=== PATIENT | male | born 2000 | race Caucasian/White ===

== ENCOUNTER 2018-04-25 19:43 | Emergency (ER) | payer SELFPAY ==
[~2018-04-25] VITALS: Ht 180.3 cm; Wt 56.7 kg
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
[2018-04-25 20:40] VITALS: BP 117/82
== END 2018-04-25 20:40 | disposition home or self-care (01) ==
LOC: EDUNIT# 19:43 → ER FS 19:45
DX: S61.011A Laceration without foreign body of right thumb without damage to nail, initial encounter (principal); W26.0XXA Contact with knife, initial encounter
CPT/HCPCS: 99282

== ENCOUNTER → 2018-08-29 | Outpatient (CLI) | payer MEDICAID ==
--- NOTE | 2018-08-29 11:15 | Diagnostic Imaging Report ---
CLINICAL INDICATION: Patient with cough and bloody sputum and tobacco abuse. EXAM: Chest x-ray PA and lateral views. COMPARISONS: None. FINDINGS: Lungs/pleura: Lungs are clear. There is no pneumothorax. There is no pleural effusion. Mediastinum: Unremarkable. Pulmonary vasculature: Unremarkable. Heart: Unremarkable. Bones/extrathoracic soft tissue: Unremarkable. IMPRESSION: There is no radiographic evidence of acute cardiopulmonary process. Dictated by: Dictated on workstation # [id number]
== END ==
LOC: RAD FS 11:05
PROVIDERS: ATTEND Nurse Practitioner Family
DX: R04.2 Hemoptysis (principal); Z72.0 Tobacco use
CPT/HCPCS: 71046

== ENCOUNTER 2019-09-06 23:17 | Emergency (ER) | payer MEDICAID ==
[~2019-09-06] VITALS: Ht 180.3 cm; Wt 55.0 kg
--- OUTSIDE RECORDS SUMMARY | 2019-09-06 23:24 | XMS REPORT | Continuity of Care Document ---
Author Organization Unknown Address Unknown Phone Unavailable Allergies There is no data. Medications There is no data. Problems Date Dx Coded Attending Type Code Diagnosis Diagnosed By 04/25/2018 BEATRICE CUNNINGHAM MD Ot S61.011A LACERATION W/O FB OF RIGHT THUMB W/O DAM 04/25/2018 BEATRICE CUNNINGHAM MD Ot W26.0XXA CONTACT WITH KNIFE, INITIAL ENCOUNTER 04/30/2018 BEATRICE CUNNINGHAM MD Ot S61.011A LACERATION W/O FB OF RIGHT THUMB W/O DAM 04/30/2018 BEATRICE CUNNINGHAM MD Ot W26.0XXA CONTACT WITH KNIFE, INITIAL ENCOUNTER 08/30/2018 BHAVESH VILLAR APRN Ot R04.2 HEMOPTYSIS 08/30/2018 BHAVESH VILLAR SALES REPRESENTATIVE WIRE ROPE Ot Z72.0 TOBACCO USE 09/18/2018 BHAVESH VILLAR APRN Ot R04.2 HEMOPTYSIS 09/18/2018 BHAVESH VILLAR APRN Ot Z72.0 TOBACCO USE Procedures There is no data. Results There is no data. Encounters ACCT No. Visit Date/Time Discharge Status Pt. Type Provider Facility Loc./Unit Complaint [id number] 08/29/2018 11:05:00 019 23:59:59 CLS Outpatient BHAVESH VILLAR APRN [facility] RAD FS Z72.0 R05 R04.2 [id number] 04/25/2018 19:45:00 019 20:40:00 DIS Emergency BEATRICE CUNNINGHAM MD Via [facility] ER FS RT THUMB LAC
[2019-09-07 00:01] VITALS: BP 134/69
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
--- NOTE | 2019-09-07 07:36 | Diagnostic Imaging Report ---
EXAMINATION: Right foot radiographs, 3 views. COMPARISON: None. HISTORY: 19-year-old male, fall. Right foot pain. FINDINGS: There is normal variant congenital fusion of the fifth digit middle and distal phalanges. There is no identified acute fracture. There is no radiopaque foreign body. The joint spaces are well preserved. IMPRESSION: Unremarkable radiographs of the right foot. Dictated by: Dictated on workstation # [id number]
== END 2019-09-07 00:06 | disposition home or self-care (01) ==
LOC: EDUNIT# 23:17 → ER FS 23:20
DX: S93.601A Unspecified sprain of right foot, initial encounter (principal); W01.0XXA Fall on same level from slipping, tripping and stumbling without subsequent striking against object, initial encounter; Y93.02 Activity, running
CPT/HCPCS: 73630

== ENCOUNTER 2019-09-12 05:37 | Emergency (ER) | payer MEDICAID, OTHER ==
[~2019-09-12] VITALS: Ht 180.3 cm; Wt 56.8 kg
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
[2019-09-12 05:48] VITALS: BP 123/78
--- NOTE | 2019-09-12 05:54 | ED General ---
General Stated Complaint: MEDICAL CLEARANCE Source of Information: Patient, Police History of Present Illness Date Seen by Provider: Sep 12, 2019 Time Seen by Provider: 05:48 Initial Comments 19-year-old male brought in by [facility]'s department for exam for fit for confinement. Patient has abrasion from a fall on his right elbow and forearm and left hand. He also has some abrasions on his left knee. He denies any other medical problems. He does not have any other complaints such as fevers chills nausea vomiting etc. Allergies and Home Medications Allergies Coded Allergies: No Known Drug Allergies (Unverified , 09/06/19) Patient Home Medication List Home Medication List Reviewed: Yes Review of Systems Review of Systems Constitutional: No chills, No fever EENTM: no symptoms reported Respiratory: no symptoms reported; No cough, No short of breath Cardiovascular: No chest pain Gastrointestinal: No abdominal pain, No nausea, No vomiting Genitourinary: no symptoms reported; No dysuria Musculoskeletal: no symptoms reported Skin: see HPI Psychiatric/Neurological: No Symptoms Reported Hematologic/Lymphatic: No Symptoms Reported Immunological/Allergic: no symptoms reported Past Crcnvqn-Sjevjo-Bcuhwp Hx Past Med/Social Hx: Reviewed Nursing Past Med/Soc Hx Patient Social History Type Used: Cigarettes 2nd Hand Smoke Exposure: Yes Recent Foreign Travel: No Contact w/Someone Who Travel: No Recent Hopitalizations: No Seasonal Allergies Seasonal Allergies: No Past Medical History Surgeries: No Respiratory: No Cardiac: No Neurological: No Genitourinary: No Gastrointestinal: No Musculoskeletal: No Endocrine: No HEENT: No Cancer: No Psychosocial: No Integumentary: No Blood Disorders: No Physical Exam Vital Signs Capillary Refill : Height, Weight, BMI Height: 5'11.00" Weight: 125lbs. oz. 56.355390gm; 16.00 BMI Method:Stated General Appearance: No Apparent Distress, WD/WN Eyes: Bilateral Eye Normal Inspection HEENT: PERRL/EOMI, Pharynx Normal Neck: Full Range of Motion, Non Tender Respiratory: Lungs Clear, Normal Breath Sounds Cardiovascular: Regular Rate, Rhythm, No Edema Gastrointestinal: Non Tender, Soft Back: Normal Inspection, No Vertebral Tenderness Extremity: Normal Capillary Refill, Normal Range of Motion Neurologic/Psychiatric: Alert, Oriented x3, Normal Mood/Affect, home health outreach coordinator II-XII Norm as Tested Skin: Other (superficial abrasions on right elbow, forearm, left hand. Patient did not allow me to look at abrasions on the left knee) Lymphatic: No Adenopathy Progress/Results/Core Measures Suspected Sepsis SIRS Temperature: Pulse: Respiratory Rate: Blood Pressure / Mean: Results/Orders Vital Signs/I&O Capillary Refill : Departure Impression Primary Impression: Multiple abrasions Disposition: HOME, SELF-CARE Condition: Stable Departure-Patient Inst. Referrals: SELF,LILA RIVER (PCP/Family) Primary Care Physician Patient Instructions: Skin Abrasions Add. Discharge Instructions: Clean abrasions with warm soapy water Patient is fit for confinement CHERELLE MARKHAM DO Sep 12, 2019 05:54
== END 2019-09-12 06:00 | disposition home or self-care (01) ==
LOC: EDUNIT# 05:37 → ER FS 05:41
DX: S50.311A Abrasion of right elbow, initial encounter (principal); S50.811A Abrasion of right forearm, initial encounter; S60.512A Abrasion of left hand, initial encounter; S80.212A Abrasion, left knee, initial encounter; Z77.22 Contact with and (suspected) exposure to environmental tobacco smoke (acute) (chronic); W19.XXXA Unspecified fall, initial encounter

== ENCOUNTER 2021-05-04 02:41 | Emergency (ER) | payer MEDICAID, OTHER ==
[~2021-05-04] VITALS: Ht 180 cm; Wt 56.6 kg
[2021-05-04] MEDS ORDERED: IBUPROFEN 600 MG (MOTRIN) TAB PO STA (03:05)
[2021-05-04] MEDS ORDERED: HYDROcodone/APAP 5 MG/325 MG (LORTAB) TAB PO STA (03:05)
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
[2021-05-04 04:05] VITALS: BP 117/71
--- NOTE | 2021-05-04 06:24 | Diagnostic Imaging Report ---
INDICATION: Pain, right 4th and 5th fingers. Swelling, left 5th MCP joint TECHNIQUE: Three views of the bilateral hands. CORRELATION STUDY: None FINDINGS: Right hand: 2 pins transfix a predominantly transversely oriented comminuted 5th proximal phalanx fracture. There is slight radial and volar displacement of the main distal fracture fragment and outward displacement of the additional larger comminuted fragments. Predominantly transversely oriented but slightly comminuted fracture involving the 4th proximal phalanx as distal aspect. Minimal radial subluxation present. Remaining osseous structures right hand otherwise intact. Soft tissue edema present. Left hand: Transversely oriented fractures at the neck of the 4th and 5th metacarpals. Slight volar displacement and angulation present. The articular surface appears to be maintained. Remaining osseous structures otherwise intact. IMPRESSION: 1. Right hand with mildly displaced fractures involving the 4th and 5th proximal phalanges. External fixation pins are noted about the 5th proximal phalanx fracture. 2. Left hand with mildly displaced angulated distal 4th and 5th metacarpal fractures. Dictated by: Dictated on workstation # [id number]
== END 2021-05-04 04:05 | disposition home or self-care (01) ==
LOC: EDUNIT# 02:41 → ER FS 02:44
DX: S62.337A Displaced fracture of neck of fifth metacarpal bone, left hand, initial encounter for closed fracture (principal); S62.365A Nondisplaced fracture of neck of fourth metacarpal bone, left hand, initial encounter for closed fracture; S62.614A Displaced fracture of proximal phalanx of right ring finger, initial encounter for closed fracture; Z72.0 Tobacco use; W18.30XA Fall on same level, unspecified, initial encounter
CPT/HCPCS: 29125; 73130; 99284; A4565

== ENCOUNTER 2021-10-03 18:27 | Emergency (ER) | payer MEDICAID ==
[~2021-10-03] VITALS: Ht 180 cm; Wt 54.4 kg
--- NOTE | 2021-10-03 18:36 | ED General ---
General Chief Complaint: COVID19 Suspect/Confirmed Stated Complaint: FEVER History of Present Illness Date Seen by Provider: Oct 03, 2021 Time Seen by Provider: 18:36 Initial Comments 21-year-old male with no significant PMH is here with complaints of subjective fever, myalgia, nausea, abdominal cramping, and diarrhea for the past 2 days. Patient is able to eat and keep food down. Patient had Ramen noodles soup for lunch. Patient's son was also sick a few days ago but tested negative for COVID and all other swab tests. Denies chest pain, palpitations, vomiting, headache, neck stiffness or pain. Pt wants to make sure he does not have COVID and he wants a work note. Allergies and Home Medications Allergies Coded Allergies: Sulfa (Sulfonamide Antibiotics) (Verified Allergy, Unknown, 05/04/21) Patient Home Medication List Home Medication List Reviewed: Yes Review of Systems Review of Systems Constitutional: fever, malaise EENTM: no symptoms reported Respiratory: no symptoms reported Cardiovascular: no symptoms reported Gastrointestinal: nausea, other (abdominal cramping) Genitourinary: no symptoms reported Musculoskeletal: no symptoms reported Skin: no symptoms reported Psychiatric/Neurological: No Symptoms Reported Hematologic/Lymphatic: No Symptoms Reported Immunological/Allergic: no symptoms reported Past Prkkatc-Erinbn-Pcjapq Hx Immunizations Up To Date First/Initial COVID19 Vaccinat: denies Seasonal Allergies Seasonal Allergies: No Past Medical History Surgery/Hospitalization HX: Right Hand fracture with surgical repair with pins 04/19/21 Surgeries: No Respiratory: No Cardiac: No Neurological: No Genitourinary: No Gastrointestinal: No Musculoskeletal: No Endocrine: No HEENT: No Cancer: No Psychosocial: No Integumentary: No Blood Disorders: No Physical Exam Vital Signs Vital Signs - First Documented 10/03/21 18:31 Temp 36.5 Pulse 82 Resp 14 B/P (MAP) 113/60 (77) Pulse Ox 99 O2 Delivery Room Air Capillary Refill : Height, Weight, BMI Height: 5'11.00" Weight: 125lbs. oz. 56.812842lk; 17.00 BMI Method:Stated General Appearance: No Apparent Distress, WD/WN HEENT: PERRL/EOMI, Normal ENT Inspection, Pharynx Normal (Very mild erythema only) Neck: Full Range of Motion, Normal Inspection, Non Tender, Supple Respiratory: Chest Non Tender, Lungs Clear, Normal Breath Sounds Cardiovascular: Regular Rate, Rhythm Gastrointestinal: Normal Bowel Sounds, No Organomegaly, Non Tender, Soft Back: No CVA Tenderness Extremity: Normal Range of Motion Neurologic/Psychiatric: Alert, Oriented x3, No Motor/Sensory Deficits, Normal Mood/Affect Skin: Normal Color Lymphatic: No Adenopathy Progress/Results/Core Measures Suspected Sepsis SIRS Temperature: Pulse: Respiratory Rate: Blood Pressure / Mean: Results/Orders Lab Results Laboratory Tests Test 10/03/21 18:38 Range/Units Influenza Type A (RT-PCR) Not Detected Not Detecte Influenza Type B (RT-PCR) Not Detected Not Detecte SARS-CoV-2 RNA (RT-PCR) Not Detected Not Detecte My Orders Orders - BECCA PANDYA MD Covid 19 Inhouse Test (10/03/21 18:37) Influenza A And B By Pcr (10/03/21 18:37) Ondansetron Oral Dissolve Tab (Zofran (10/03/21 19:21) Famotidine Tablet (Pepcid Tablet) (10/03/21 19:21) Vital Signs/I&O 10/03/21 18:31 Temp 36.5 Pulse 82 Resp 14 B/P (MAP) 113/60 (77) Pulse Ox 99 O2 Delivery Room Air Capillary Refill : Progress Note : Progress Note 1. VIRAL GASTROENTERITIS: - COVID test negative/ Rapid flu test negative - Zofran and Pepcid oral given in ER - Prescription for Pepcid and Zofran given - Follow up with PCP in the next 3 to7 days - Advised adequate hydration - Work note given -The patient was seen in the ED, and treated appropriately to presentation at a specific point in time. Patient is informed that there is a possibility that disease and illness can evolve and change in acuity rapidly or slowly after patient is discharged from the ER. Precautionary advice given to the patient for immediate return to ER if symptoms worsen or do not resolve, and to seek emergency care sooner rather than later. Pt also advised on the importance of PCP follow up and compliance with management and follow up plan with PCP and/or specialist, as this is part of the management plan. Pt verbally expressed understanding. Departure Impression Primary Impression: Viral gastroenteritis Disposition: 01 HOME, SELF-CARE Condition: Stable Departure-Patient Inst. Referrals: SELF,LILA RIEVR (PCP/Family) Primary Care Physician Patient Instructions: Viral Gastroenteritis, Diarrhea, Adult ED Add. Discharge Instructions: - Prescription for Pepcid and Zofran given - Follow up with PCP in the next 3 to7 days - Advised adequate hydration - Work note given All discharge instructions reviewed with patient and/or family. Voiced understanding. Scripts Nizatidine (Nizatidine) 150 Mg Capsule 150 MG PO DAILY for 7 Days, #7 CAP Prov: BECCA PANDYA MD 10/03/21 Ondansetron (Ondansetron Odt) 4 Mg Tab.rapdis 4 MG PO TID for nausea for 4 Days, #15 TAB Prov: BECCA PANDYA MD 10/03/21 BECCA PANDYA MD Oct 03, 2021 18:36
[2021-10-03] MEDS ORDERED: FAMOTIDINE 20 MG (PEPCID) TABLET PO STA (19:21)
[2021-10-03] MEDS ORDERED: ONDANSETRON 4 MG (ZOFRAN) ORAL DISSOLVE TAB SL STA (19:21)
[2021-10-03] MEDS ORDERED: ONDA4TAB11 PO (19:34)
[2021-10-03] MEDS ORDERED: [UNRECOGNIZED DRUG - CODE] PO (19:34)
[2021-10-03 19:36] VITALS: BP 119/68
== END 2021-10-03 19:37 | disposition home or self-care (01) ==
LOC: EDUNIT# 18:27 → ER FS 18:29
DX: A08.4 Viral intestinal infection, unspecified (principal); Z28.310 Unvaccinated for COVID-19; Z20.822 Contact with and (suspected) exposure to COVID-19
CPT/HCPCS: 87636; 99283

== ENCOUNTER 2022-04-15 01:13 | Emergency (ER) | payer MEDICAID ==
[~2022-04-15 01:13] MED LIST: ONDA4TAB11 PO; [UNRECOGNIZED DRUG - CODE] PO
[2022-04-15] MEDS ORDERED: AUGMENTIN 875 MG TAB (AMOXICILLIN/CLAVULANATE) PO STA (01:35)
[2022-04-15] MEDS ORDERED: IBUPROFEN 800 MG (MOTRIN) TAB PO STA (01:35)
[2022-04-15] MEDS ORDERED: IBUP-1780 PO (01:40)
[2022-04-15] MEDS ORDERED: TRM50T PO (01:40)
[2022-04-15] MEDS ORDERED: AMOX1TAB12 PO (01:40)
[2022-04-15 01:42] VITALS: BP 144/97
--- NOTE | 2022-04-15 01:42 | ED EENT ---
History of Present Illness General Chief Complaint: Dental Problems/Pain Stated Complaint: DEMTAL PAIN Nursing Triage Note: Pt complaining of right upper and lower dental pain that started about a month ago Source: patient History of Present Illness Date Seen by Provider: Apr 15, 2022 Time Seen by Provider: 01:18 Initial Comments 22-year-old male presenting with complaints of dental pain on the right side that has been ongoing for over a month. He has had recurring issues with his teeth but ran out of any Tylenol or ibuprofen at home. He states he previously tried to get in with a dentist but did not have dental insurance at that time however now he does. He felt like he was getting some yellow drainage from the teeth and was concerned for infection. He denies fever, chills, nausea, vomiting, pain with opening his mouth. There is dental pain on the right side both upper and lower teeth. He has widespread dental decay with multiple broken and decayed teeth. Timing/Duration: gradual (for over a month, worse now since he ran out of OTC pain medicine) Severity: severe Location: dental Prearrival Treatment: no prearrival treatment Modifying Factors: Worse With Other (eating and drinking makes it worse) Associated Symptoms: No change in hearing, No cough, No drooling, No ear drainage, No facial pain/swelling, No fever, No malaise, No nasal congestion/drainage, No poor fluid intake, No poor solids intake; tooth pain Allergies and Home Medications Allergies Coded Allergies: Sulfa (Sulfonamide Antibiotics) (Verified Allergy, Unknown, 05/04/21) Patient Home Medication List Home Medication List Reviewed: Yes Amoxicillin/Potassium Clav (Amox Tr-K Clv 875-125 mg Tab) 875 Mg-125 Mg Tablet, 1 EACH PO BID Prescribed by: GERMAN ALEMAN on 04/15/22139 Ibuprofen (Ibuprofen) 800 Mg Tablet, 800 MG PO Q8H PRN for PAIN Prescribed by: GERMAN ALEMAN on 04/15/22139 Nizatidine (Nizatidine) 150 Mg Capsule, 150 MG PO DAILY Prescribed by: BECCA PANDYA MD on 10/03/211933 Ondansetron (Ondansetron Odt) 4 Mg Tab.rapdis, 4 MG PO TID Prescribed by: BECCA PANDYA MD on 10/03/211933 Tramadol HCl (Tramadol HCl) 50 Mg Tablet, 50 MG PO Q6H PRN for PAIN-SEVERE (8- 10) Prescribed by: GERMAN ALEMAN on 04/15/22 0140 Review of Systems Review of Systems Constitutional: No chills, No fever Eyes: No Symptoms Reported Ears: No Symptoms Reported Mouth: see HPI Throat: no symptoms reported Respiratory: no symptoms reported Cardiovascular: no symptoms reported Gastrointestinal: no symptoms reported Musculoskeletal: no symptoms reported Skin: no symptoms reported Past Suzauvw-Ipvtab-Srvdly Hx Patient Social History Tobacco Use?: No Use of E-Cig and/or Vaping dev: No Substance use?: No Alcohol Use?: No Pt feels they are or have been: No Immunizations Up To Date First/Initial COVID19 Vaccinat: denies Second COVID19 Vaccination Zackary: denies Third COVID19 Vaccination Date: denies Seasonal Allergies Seasonal Allergies: No Past Medical History Surgery/Hospitalization HX: Right Hand fracture with surgical repair with pins 04/19/21 Surgeries: No Respiratory: No Cardiac: No Neurological: No Genitourinary: No Gastrointestinal: No Musculoskeletal: No Endocrine: No HEENT: No Cancer: No Psychosocial: No Integumentary: No Blood Disorders: No Physical Exam Vital Signs Vital Signs - First Documented 04/15/22 01:19 Pulse 76 Resp 18 B/P (MAP) 144/97 (113) Pulse Ox 100 O2 Delivery Room Air Height, Weight, BMI Height: 5'11.00" Weight: 125lbs. oz. 56.907849bv; 16.00 BMI Method:Stated General Appearance: WD/WN, no apparent distress Eyes: bilateral eye PERRL, bilateral eye EOMI Mouth/Throat: pharynx normal, dental tenderness (wide spread dental decay and multiple teeth that look as though they could cause her pain. gum swelling to right side both mandibular and maxillary) Neck: non-tender, full range of motion Cardiovascular: normal peripheral pulses Neurologic/Psychiatric: alert, oriented x 3 Skin: normal color, warm/dry Progress/Results/Core Measures Results/Orders My Orders Orders - GERMAN ALEMAN MD Amoxicillin/Clavulanate Tablet (Augmenti (04/15/22 01:35) Ibuprofen Tablet (Motrin Tablet) (04/15/22 01:35) Tramadol Tablet (Ultram Tablet) (04/15/22 01:35) Vital Signs/I&O 04/15/22 04/15/22 01:19 01:42 Pulse 76 76 Resp 18 18 B/P (MAP) 144/97 (113) 144/97 Pulse Ox 100 100 O2 Delivery Room Air Room Air Blood Pressure Mean: 113 Progress Progress Note : Progress Note Counseled patient that I did not have any dental services here. I can get him s tarted on antibiotic and anti-inflammatory as well as a few pain pills. He would need to call Saturday to arrange for follow-up with a dentist for definitive care. Take the full course of antibiotics to help treat for infection so that when he does see the dentist they could take care of his teeth.. Given a first dose of Augmentin 875 mg, ibuprofen 800 mg, tramadol 50 mg all by mouth. Patient had declined injection as he stated that he did not like needles. Send prescription to [facility] pharmacy to continue the Augmentin for 10 days, ibuprofen for 10 days 800 mg every 8 hours, tramadol 50 mg every 6 hours as needed for severe pain for the next 3 days. Also advised he can take ibgw-ldu-moawgvn acetaminophen 650 mg every 6 hours as needed for additional pain control. Departure Impression Primary Impression: Pain due to dental caries Additional Impression: Dental abscess Disposition: HOME, SELF-CARE Condition: Stable Departure-Patient Inst. Decision time for Depature: 01:38 Referrals: LILA WADDELL MD (PCP/Family) Primary Care Physician [facility] Patient Instructions: Tooth Decay ED, Tooth Abscess ED, Dental Pain ED Add. Discharge Instructions: Take antibiotic and ibuprofen to help with dental pain and infection. For severe pain take the Tramadol. Call Dentist Saturday to arrange follow up and definitive care for your teeth. You may also take Acetaminophen 650 mg every 6 hours as needed for pain in addition to the prescribed medicines. All discharge instructions reviewed with patient and/or family. Voiced under standing. Scripts Tramadol HCl (Tramadol HCl) 50 Mg Tablet 50 MG PO Q6H PRN for PAIN-SEVERE (8-10) for 3 Days, #12 TAB 0 Refills Prov: GERMAN ALEMAN MD 04/15/22 Amoxicillin/Potassium Clav (Amox Tr-K Clv 875-125 mg Tab) 875 Mg-125 Mg Tablet 1 EACH PO BID for dental abscess/pain for 10 Days, #20 TAB 0 Refills Prov: GERMAN ALEMAN MD 04/15/22 Ibuprofen (Ibuprofen) 800 Mg Tablet 800 MG PO Q8H PRN for PAIN for 10 Days, #30 TAB 0 Refills Prov: GERMAN ALEMAN MD 04/15/22 GERMAN ALEMAN MD Apr 15, 2022 01:42
== END 2022-04-15 01:43 | disposition home or self-care (01) ==
LOC: EDUNIT# 01:13 → ER FS 01:17
DX: K02.9 Dental caries, unspecified (principal); K04.7 Periapical abscess without sinus; Z88.1 Allergy status to other antibiotic agents; Z28.310 Unvaccinated for COVID-19
CPT/HCPCS: 99283

== ENCOUNTER 2022-08-10 02:47 | Emergency (ER) | payer MEDICAID ==
[~2022-08-10 02:47] MED LIST changes: +AMOX1TAB12 PO; +IBUP-1780 PO; +TRM50T PO
[2022-08-10 02:52] VITALS: BP 117/57
[2022-08-10] MEDS ORDERED: diphenhydrAMINE 50 MG/ML INJ (BENADRYL) IV STA (02:55)
--- NOTE | 2022-08-10 02:55 | ED General ---
General Chief Complaint: Allergic Reaction Stated Complaint: DEHYDRATION History of Present Illness Date Seen by Provider: Aug 10, 2022 Time Seen by Provider: 02:55 Initial Comments 22-year-old male brought in with concerns for allergic reaction may be dehydration. Patient has been drinking tonight and states that he noticed a "rash" is itchy. That he vomited x1 and maybe has some shortness of breath prior to EMS arrival. Patient has no complaints however upon arrival. EMS started bag of fluid and has just a minimal amount out of it. EMS reports that he was in no acute distress or concerning findings when they arrived and was brought out due to him being requested transport to ER Allergies and Home Medications Allergies Coded Allergies: Sulfa (Sulfonamide Antibiotics) (Verified Allergy, Unknown, 05/04/21) Patient Home Medication List Home Medication List Reviewed: Yes Amoxicillin/Potassium Clav (Amox Tr-K Clv 875-125 mg Tab) 875 Mg-125 Mg Tablet, 1 EACH PO BID Prescribed by: GERMAN ALEMAN on 04/15/22139 Ibuprofen (Ibuprofen) 800 Mg Tablet, 800 MG PO Q8H PRN for PAIN Prescribed by: GERMAN ALEMAN on 04/15/22139 Nizatidine (Nizatidine) 150 Mg Capsule, 150 MG PO DAILY Prescribed by: BECCA PANDYA MD on 10/03/211933 Ondansetron (Ondansetron Odt) 4 Mg Tab.rapdis, 4 MG PO TID Prescribed by: BECCA PANDYA MD on 10/03/211933 Tramadol HCl (Tramadol HCl) 50 Mg Tablet, 50 MG PO Q6H PRN for PAIN-SEVERE (8- 10) Prescribed by: GERMAN ALEMAN on 04/15/22139 Review of Systems Review of Systems Constitutional: no symptoms reported EENTM: no symptoms reported Respiratory: see HPI Cardiovascular: no symptoms reported Gastrointestinal: see HPI Genitourinary: no symptoms reported Musculoskeletal: no symptoms reported Skin: see HPI Psychiatric/Neurological: No Symptoms Reported Hematologic/Lymphatic: No Symptoms Reported Past Lxnmfpc-Dlozdy-Kzcbyx Hx Immunizations Up To Date First/Initial COVID19 Vaccinat: denies Second COVID19 Vaccination Zackary: denies Third COVID19 Vaccination Date: denies Seasonal Allergies Seasonal Allergies: No Past Medical History Surgery/Hospitalization HX: Right Hand fracture with surgical repair with pins 04/19/21 Surgeries: No Respiratory: No Cardiac: No Neurological: No Genitourinary: No Gastrointestinal: No Musculoskeletal: No Endocrine: No HEENT: No Cancer: No Psychosocial: No Integumentary: No Blood Disorders: No Physical Exam Vital Signs Vital Signs - First Documented 08/10/22 02:52 Temp 36.3 Pulse 94 Resp 16 B/P (MAP) 117/57 (77) Capillary Refill : Height, Weight, BMI Height: 5'11.00" Weight: 125lbs. oz. 56.014970zk; 16.00 BMI Method:Stated General Appearance: No Apparent Distress, Other (Smells of alcohol, mildly intoxicated) HEENT: PERRL/EOMI Neck: Non Tender, Supple Respiratory: Lungs Clear, Normal Breath Sounds Cardiovascular: Regular Rate, Rhythm, No Edema Gastrointestinal: Non Tender, Soft Extremity: Normal Capillary Refill, Normal Inspection Neurologic/Psychiatric: Alert, Other (Mild intoxicated) Skin: No Rash Progress/Results/Core Measures Suspected Sepsis SIRS Temperature: Pulse: Respiratory Rate: Laboratory Tests 08/10/22 03:10: White Blood Count 8.7 Blood Pressure / Mean: Laboratory Tests 08/10/22 03:10: Creatinine 0.83, Platelet Count 233, Total Bilirubin < 0.2 Results/Orders Lab Results Laboratory Tests Test 08/10/22 03:10 Range/Units White Blood Count 8.7 4.3-11.0 10^3/uL Red Blood Count 4.20 L 4.30-5.52 10^6/uL Hemoglobin 12.5 L 13.3-17.7 g/dL Hematocrit 38 L 40-54 % Mean Corpuscular Volume 90 80-99 fL Mean Corpuscular Hemoglobin 30 25-34 pg Mean Corpuscular Hemoglobin Concent 33 32-36 g/dL Red Cell Distribution Width 13.0 10.0-14.5 % Platelet Count 233 130-400 10^3/uL Mean Platelet Volume 9.3 9.0-12.2 fL Immature Granulocyte % (Auto) 0 % Neutrophils (%) (Auto) 41 L 42-75 % Lymphocytes (%) (Auto) 49 H 12-44 % Monocytes (%) (Auto) 8 0-12 % Eosinophils (%) (Auto) 2 0-10 % Basophils (%) (Auto) 1 0-10 % Neutrophils # (Auto) 3.6 1.8-7.8 10^3/uL Lymphocytes # (Auto) 4.2 H 1.0-4.0 10^3/uL Monocytes # (Auto) 0.7 0.0-1.0 10^3/uL Eosinophils # (Auto) 0.2 0.0-0.3 10^3/uL Basophils # (Auto) 0.1 0.0-0.1 10^3/uL Immature Granulocyte # (Auto) 0.0 0.0-0.1 10^3/uL Sodium Level 145 135-145 MMOL/L Potassium Level 3.5 L 3.6-5.0 MMOL/L Chloride Level 112 H 98-107 MMOL/L Carbon Dioxide Level 21 21-32 MMOL/L Anion Gap 12 5-14 MMOL/L Blood Urea Nitrogen 10 7-18 MG/DL Creatinine 0.83 0.60-1.30 MG/DL Estimat Glomerular Filtration Rate 125 BUN/Creatinine Ratio 12 Glucose Level 83 70-105 MG/DL Calcium Level 8.3 L 8.5-10.1 MG/DL Corrected Calcium 8.4 L 8.5-10.1 MG/DL Total Bilirubin < 0.2 0.1-1.0 MG/DL Aspartate Amino Transf (AST/SGOT) 24 5-34 U/L Alanine Aminotransferase (ALT/SGPT) 19 0-55 U/L Alkaline Phosphatase 86 40-136 U/L Total Protein 6.2 L 6.4-8.2 GM/DL Albumin 3.9 3.2-4.5 GM/DL Serum Alcohol 196 H <10 MG/DL My Orders Orders - CHERELLE MARKHAM L DO Alcohol (08/10/22 02:55) Cbc With Automated Diff (08/10/22 02:55) Comprehensive Metabolic Panel (08/10/22 02:55) Diphenhydramine Injection (Benadryl Inje (08/10/22 02:55) Vital Signs/I&O 08/10/22 02:52 Temp 36.3 Pulse 94 Resp 16 B/P (MAP) 117/57 (77) Capillary Refill : Progress Note : Progress Note Patient's diagnostics ordered reviewed and interpreted by me. Patient does have an elevated alcohol level proximately 2-1/2 times legal limit. Patient has some scars that he said where the rash formed however there is no rash appreciated. I did give him some Benadryl because he felt that it was itchy. Patient's labs were otherwise nonconcerning. Patient slept with no signs of acute distress or allergic or anaphylactic reaction while in the ER. Patient was discharged home in stable condition and likely just needs to sober up. Patient is at increased risk of morbidity, mortality based on his social determinants of health. History was obtained from both patient and EMS. Patient was stable upon discharge Departure Impression Primary Impression: Alcohol intoxication Qualified Codes: F10.920 - Alcohol use, unspecified with intoxication, uncomplicated Disposition: HOME, SELF-CARE Condition: Stable Departure-Patient Inst. Referrals: SELF,LILA RIVER (PCP/Family) Primary Care Physician Add. Discharge Instructions: Follow-up with your primary care provider as needed All discharge instructions reviewed with patient and/or family. Voiced underst anding. CHERELLE MARKHAM DO Aug 10, 2022 02:55
[2022-08-10 03:12] LABS: BASOPHILS # (AUTO) 0.1 10^3/uL (0.0-0.1); BASOPHILS % (AUTO) 1 % (0-10); EOSINOPHILS # (AUTO) 0.2 10^3/uL (0.0-0.3); EOSINOPHILS % (AUTO) 2 % (0-10); HEMATOCRIT 38 % (40-54); HEMOGLOBIN 12.5 g/dL (13.3-17.7); LYMPHOCYTES # (AUTO) 4.2 10^3/uL (1.0-4.0); LYMPHOCYTES % (AUTO) 49 % (12-44); MEAN CORPUSCULAR HEMOGLOBIN 30 pg (25-34); MEAN CORPUSCULAR HGB CONC 33 g/dL (32-36); MEAN CORPUSCULAR VOLUME 90 fL (80-99); MEAN PLATELET VOLUME 9.3 fL (9.0-12.2); MONOCYTES # (AUTO) 0.7 10^3/uL (0.0-1.0); MONOCYTES % (AUTO) 8 % (0-12); NEUTROPHILS # (AUTO) 3.6 10^3/uL (1.8-7.8); NEUTROPHILS % (AUTO) 41 % (42-75); PLATELET COUNT 233 10^3/uL (130-400); WHITE BLOOD COUNT 8.7 10^3/uL (4.3-11.0)
[2022-08-10 03:32] LABS: SODIUM 145 MMOL/L (135-145)
[2022-08-10 03:33] LABS: ALANINE AMINOTRANSFERASE 19 U/L (0-55); ALBUMIN 3.9 GM/DL (3.2-4.5); ALKALINE PHOSPHATASE 86 U/L (40-136); BILIRUBIN,TOTAL < 0.2 MG/DL (0.1-1.0); BUN/CREATININE RATIO 12; CALCIUM 8.3 MG/DL (8.5-10.1); CARBON DIOXIDE 21 MMOL/L (21-32); CHLORIDE 112 MMOL/L (98-107); CREATININE SERUM 0.83 MG/DL (0.60-1.30); GFR ESTIMATED 125; GLUCOSE 83 MG/DL (70-105); POTASSIUM 3.5 MMOL/L (3.6-5.0); TOTAL PROTEIN 6.2 GM/DL (6.4-8.2)
== END 2022-08-10 03:50 | disposition home or self-care (01) ==
LOC: EDUNIT# 02:47 → ER FS 02:48
DX: F10.129 Alcohol abuse with intoxication, unspecified (principal); Z28.310 Unvaccinated for COVID-19
CPT/HCPCS: 36415; 80053; 85025; 99284; G0480; 80320

== ENCOUNTER 2022-11-05 18:42 | Emergency (ER) | payer MEDICAID ==
[~2022-11-05] VITALS: Ht 180.3 cm; Wt 55.1 kg
[2022-11-05 18:53] VITALS: BP 115/80
[2022-11-05] MEDS ORDERED: IBUP-1773 PO (18:59)
[2022-11-05] MEDS ORDERED: FLUT15.845 NS (18:59)
--- NOTE | 2022-11-05 18:59 | ED Cough/URI ---
General Chief Complaint: Cough/Cold/Flu Symptoms Stated Complaint: FEVER,COUGH,CONGESTED,RUNNY NOSE Source: patient Exam Limitations: no limitations History of Present Illness Date Seen by Provider: Nov 05, 2022 Time Seen by Provider: 18:44 Initial Comments 22-year-old male with no pertinent past medical history coming in due to 4 days of cough, congestion, and 2 days of fever. Has not taken any medications as of yet. Is unsure if he has been around anyone sick. Denies any vomiting, has had some loose stools. Denies any shortness of breath, chest pain, abdominal pain, rash, or any other concerns. Allergies and Home Medications Allergies Coded Allergies: Sulfa (Sulfonamide Antibiotics) (Verified Allergy, Unknown, 05/04/21) Patient Home Medication List Home Medication List Reviewed: Yes Amoxicillin/Potassium Clav (Amox Tr-K Clv 875-125 mg Tab) 875 Mg-125 Mg Tablet, 1 EACH PO BID Prescribed by: GERMAN ALEMAN on 04/15/22139 Ibuprofen (Ibuprofen) 800 Mg Tablet, 800 MG PO Q8H PRN for PAIN Prescribed by: GERMAN ALEMAN on 04/15/22139 Nizatidine (Nizatidine) 150 Mg Capsule, 150 MG PO DAILY Prescribed by: BECCA PANDYA MD on 10/03/211933 Ondansetron (Ondansetron Odt) 4 Mg Tab.rapdis, 4 MG PO TID Prescribed by: BECCA PANDYA MD on 10/03/211933 Tramadol HCl (Tramadol HCl) 50 Mg Tablet, 50 MG PO Q6H PRN for PAIN-SEVERE (8- 10) Prescribed by: GERMAN ALEMAN on 04/15/22139 Review of Systems Review of Systems Constitutional: fever EENTM: nose congestion Respiratory: cough Cardiovascular: no symptoms reported Gastrointestinal: see HPI Genitourinary: no symptoms reported Musculoskeletal: no symptoms reported Skin: no symptoms reported Psychiatric/Neurological: No Symptoms Reported Hematologic/Lymphatic: No Symptoms Reported Past Uipkjvf-Hvfupi-Bnhtob Hx Patient Social History Tobacco Use?: Yes Substance use?: No Alcohol Use?: Yes Immunizations Up To Date First/Initial COVID19 Vaccinat: denies Second COVID19 Vaccination Zackary: denies Third COVID19 Vaccination Date: denies Seasonal Allergies Seasonal Allergies: No Past Medical History Surgery/Hospitalization HX: Right Hand fracture with surgical repair with pins 04/19/21 Surgeries: Yes Respiratory: No Cardiac: No Neurological: No Genitourinary: No Gastrointestinal: No Musculoskeletal: No Endocrine: No HEENT: No Cancer: No Psychosocial: No Integumentary: No Blood Disorders: No Physical Exam Capillary Refill : Height: 5'11.00" Weight: 125lbs. oz. [id number]; 16.00 BMI Method:Stated General Appearance: WD/WN, no apparent distress Eyes: Bilateral Eye Normal Inspection HEENT: PERRL/EOMI, normal ENT inspection, TMs normal, pharyngeal erythema; No tonsillar exudate Neck: non-tender, full range of motion, supple, normal inspection Respiratory: chest non-tender, lungs clear, normal breath sounds, no respiratory distress, no accessory muscle use Cardiovascular: regular rate, rhythm, no edema, no murmur Gastrointestinal: normal bowel sounds, non tender, soft; No distended, No guarding, No rebound Extremities: normal range of motion, non-tender, normal inspection, no pedal edema, no calf tenderness, normal capillary refill Neurologic/Psychiatric: no motor/sensory deficits, alert, normal mood/affect Skin: normal color, warm/dry Progress/Results/Core Measures Suspected Sepsis SIRS Temperature: Pulse: Respiratory Rate: Blood Pressure / Mean: Results/Orders My Orders Orders - MATILDE WILL MD Ibuprofen Tablet (Ibuprofen Tablet) (11/05/22 19:00) Acetaminophen Tablet (Acetaminophen Ta (11/05/22 19:00) Influenza A And B By Pcr (11/05/22 18:52) Covid 19 Inhouse Test (11/05/22 18:52) Vital Signs/I&O Capillary Refill : Progress Note : Progress Note 22-year-old male with above history coming in due to URI type symptoms. ABCs were intact and vitals were stable on presentation. Temperature is slightly elevated at 100.1 but no fever as of right now. He was given ibuprofen and Tylenol for his elevated temperature. Flu and COVID testing sent and are pending. I will call him with the results. He is otherwise well-appearing, no clinical signs of pneumonia, chest x-ray not indicated at this time. I believe he stable for discharge with outpatient follow-up. He was sent home with strict return precautions. Departure Impression Primary Impression: URI (upper respiratory infection) Qualified Codes: J06.9 - Acute upper respiratory infection, unspecified Additional Impression: Person under investigation for COVID-19 Disposition: 01 HOME, SELF-CARE Condition: Stable Departure-Patient Inst. Decision time for Depature: 19:00 Referrals: LILA WADDELL MD (PCP/Family) Primary Care Physician Patient Instructions: Viral Upper Respiratory Infection, Adult (DC) Add. Discharge Instructions: Your symptoms are consistent with a viral upper respiratory infection. Unfortunately antibiotics will not help with this. We did send a steroid nasal spray to your pharmacy as well as some prescription strength ibuprofen to help with pain and fever. Drink plenty of fluids and continue to take ibuprofen and Tylenol as needed for fever. We also recommend things such as a humidifier and over the counter saline spray in your nose to help clear up the mucous. Come back to the ER if you have fever every day for 5 days straight. Otherwise, please follow back up with your regular doctor if you are not seeing improvement. Scripts Ibuprofen (Ibuprofen) 600 Mg Tablet 600 MG PO Q6H PRN for FEVER for 5 Days, #20 TAB Prov: MATILDE WILL MD 11/05/22 Fluticasone Propionate (Fluticasone Propionate) 50 Mcg/Actuation [place].susp 2 SPRAY NS DAILY for 14 Days, #16 GM Prov: MATILDE WILL MD 11/05/22 Work/School Note: Work Release Form Date Seen in the Emergency Department: Nov 05, 2022 Return to Work: Nov 07, 2022 Restrictions: Return-No Fever (24hrs) MATILDE WILL MD Nov 05, 2022 18:58
[2022-11-05] MEDS ORDERED: IBUPROFEN 600 MG TABLET PO ONE (19:00)
[2022-11-05] MEDS ORDERED: ACETAMINOPHEN 500 MG TABLET PO ONE (19:00)
== END 2022-11-05 19:06 | disposition home or self-care (01) ==
LOC: ER FS 18:42 → EDUNIT# 18:42 → ER FS 19:06
DX: J06.9 Acute upper respiratory infection, unspecified (principal); Z72.0 Tobacco use; Z20.822 Contact with and (suspected) exposure to COVID-19; Z28.310 Unvaccinated for COVID-19
CPT/HCPCS: 87636; 99283